=== PATIENT | female | born 1940 | race Caucasian/White ===

== ENCOUNTER → 2017-06-04 | Outpatient (CLI) | payer MEDICARE, MEDICAID | END | disposition home or self-care (01) | LOC: CFH 09:21 | PROVIDERS: ATTEND Surgery | DX: Z12.31 Encounter for screening mammogram for malignant neoplasm of breast (principal); Z85.3 Personal history of malignant neoplasm of breast; Z90.12 Acquired absence of left breast and nipple | CPT/HCPCS: G0202 ==

== ENCOUNTER → 2017-11-20 | Outpatient (CLI) | payer MEDICARE, MEDICAID | END | disposition home or self-care (01) | LOC: CFH 09:10 | PROVIDERS: ATTEND Family Medicine | DX: J42 Unspecified chronic bronchitis (principal) | CPT/HCPCS: 71046 ==

== ENCOUNTER 2021-02-10 20:48 | Inpatient (IN) | payer MEDICARE, MEDICAID ==
[~2021-02-10] VITALS: Ht 149.9 cm; Wt 74.1 kg
--- NOTE | 2021-02-10 21:15 | NUR ---
pt bib ems from home. pt states she has been feeling sick for about 3 months. states today she was getting out of bed and was feeling dizzy and fell down. denies loc or hitting head. pt's ra saturation is 81-84 percent. pt recieved 250 ml bolus and 4mg zofran enroute. pt placed on all monitors, ekg done, denies any chest pain. only pain she has is from chronic osteo arthritis. pt states she takes oxycodone daily.
[2021-02-10 22:00] LABS: MEAN CORPUSCULAR HEMOGLOBIN 29.5 pg (27.0-34.8); MEAN CORPUSCULAR HGB CONC 33.5 g/dL (32.4-35.8); MEAN PLATELET VOLUME 7.1 fL (7.4-10.4); PLATELET COUNT 477 x10^3/uL (130-400); RED BLOOD COUNT 4.85 x10^6/uL (3.82-5.3); RED CELL DISTRIBUTION WIDTH 14.3 % (9.6-15.2)
[2021-02-10 22:12] LABS: ALANINE AMINOTRANSFERASE 24 U/L (12-78); ALBUMIN 2.3 g/dL (3.4-5.0); ANION GAP 6 mmol/L (5-15); CALCIUM 8.6 mg/dL (8.5-10.1); CHLORIDE 99 mmol/L (98-107); CREATININE 0.71 mg/dL (0.55-1.02)
[2021-02-10 22:22] LABS: ALKALINE PHOSPHATASE 153 U/L (45-117); BILIRUBIN,TOTAL 0.4 mg/dL (0.2-1.0); TOTAL PROTEIN 7.7 g/dL (6.4-8.2); TROPONIN I 0.079 ng/mL (0.000-0.045)
[2021-02-10] MEDS ORDERED: OMNIPAQUE 350 MG/ML, 100ML BOTTLE ONE (22:50)
[2021-02-10] MEDS ORDERED: AZITHROMYCIN 500 MG in SODIUM CHLORIDE 0.9% 250 ML IV ONE (23:00)
[2021-02-10] MEDS ORDERED: HEPARIN 5,000 UNITS/ML, 1ML IV ONE (23:00)
[2021-02-10] MEDS ORDERED: CEFTRIAXONE 1,000 MG in DEXTROSE 5% 50 ML IVPB ONE (23:00)
[2021-02-10 23:01] LABS: <PLATELET ESTIMATE> INCREASED; <PLT MORPHOLOGY> NORMAL PLT MORPH; <RBC MORPHOLOGY> NORMAL; BAND#(MANUAL) 0.82 x10^3/uL; BANDS%(MANUAL) 5 % (0-7); LYMPH#(MANUAL) 1.15 x10^3/uL (1-3.4); LYMPHS% (MANUAL) 7 % (22-44); MONOS#(MANUAL) 0.66 x10^3/uL (0.3-2.7); MONOS% (MANUAL) 4 % (2-9); SEG#(MANUAL) 13.78 x10^3/uL (1.8-6.8); SEGS% (MANUAL) 84 % (42-75)
[2021-02-10] MEDS ORDERED: HEPARIN 5,000 UNITS/ML, 1ML ONE (23:19)
[2021-02-10] MEDS ORDERED: HEPARIN 25,000 UNITS/250ML PMX 250 ML ONE (23:19)
[2021-02-10] MEDS: HEPARIN 25,000 UNITS/250ML PMX 250 ML IV PRN (23:41)
--- NOTE | 2021-02-10 23:43 | NUR ---
abx hung after blood cultures
[2021-02-10 23:54] LABS: MICROSCOPIC NOT IND
[2021-02-11] MEDS ORDERED: ACETAMINOPHEN 325 MG TABLET PO PRN
[2021-02-11] MEDS ORDERED: LACTATED RINGERS 1,000 ML IVBOLUS ONE (00:30)
[2021-02-11 00:58] VITALS: BP 140/76
[2021-02-11 02:17] LABS: TROPONIN I 0.052 ng/mL (0.000-0.045)
[2021-02-11 05:27] LABS: BASOPHILS % (AUTO) 1 % (0-1); EOSINOPHILS % (AUTO) 1 % (1-7); LYMPHOCYTES % (AUTO) 12 % (22-44); MEAN CORPUSCULAR HEMOGLOBIN 29.4 pg (27.0-34.8); MEAN CORPUSCULAR HGB CONC 33.7 g/dL (32.4-35.8); MEAN PLATELET VOLUME 7.1 fL (7.4-10.4); MONOCYTES % (AUTO) 9 % (2-9); NEUTROPHILS % (AUTO) 77 % (42-75); PLATELET COUNT 413 x10^3/uL (130-400); RED BLOOD COUNT 4.47 x10^6/uL (3.82-5.3); RED CELL DISTRIBUTION WIDTH 14.2 % (9.6-15.2)
[2021-02-11 05:39] LABS: INTERNATIONAL NORMALIZED RATIO 1.09 (0.93-1.1); PROTHROMBIN TIME 11.6 Seconds (9.6-11.5)
[2021-02-11 05:41] LABS: ANION GAP 7 mmol/L (5-15); CALCIUM 8.6 mg/dL (8.5-10.1); CHLORIDE 103 mmol/L (98-107); CREATININE 0.59 mg/dL (0.55-1.02)
[2021-02-11 05:45] LABS: TROPONIN I 0.045 ng/mL (0.000-0.045)
[2021-02-11 06:20] VITALS: BP 116/77
[2021-02-11] MEDS: HEPARIN 5,000 UNITS/ML, 1ML IV PRN ×2 (07:05→20:40)
[2021-02-11] MEDS ORDERED: CEFTRIAXONE 2 GM in DEXTROSE 5% 50 ML IVPB SCH (09:00)
[2021-02-11] MEDS: AZITHROMYCIN 500 MG TABLET PO SCH (10:52)
[2021-02-11 14:00] VITALS: BP 124/68
[2021-02-11 18:44] VITALS: BP 130/79
[2021-02-11] MEDS ORDERED: CEFTRIAXONE 1,000 MG in DEXTROSE 5% 50 ML IVPB SCH (23:00)
[2021-02-11] MEDS: LORazepam 2 MG/ML, 1ML IVPush PRN (23:16)
[2021-02-11] MEDS: CEFTRIAXONE 1,000 MG in DEXTROSE 5% 50 ML IVPB SCH (23:16)
[2021-02-12 00:22] VITALS: BP 134/78
[2021-02-12] MEDS: HEPARIN 25,000 UNITS/250ML PMX 250 ML IV PRN (02:37)
[2021-02-12 03:51] LABS: BASOPHILS % (AUTO) 1 % (0-1); EOSINOPHILS % (AUTO) 2 % (1-7); LYMPHOCYTES % (AUTO) 22 % (22-44); MEAN CORPUSCULAR HEMOGLOBIN 29.6 pg (27.0-34.8); MEAN CORPUSCULAR HGB CONC 33.8 g/dL (32.4-35.8); MEAN PLATELET VOLUME 7.1 fL (7.4-10.4); MONOCYTES % (AUTO) 8 % (2-9); NEUTROPHILS % (AUTO) 67 % (42-75); PLATELET COUNT 446 x10^3/uL (130-400); RED BLOOD COUNT 4.13 x10^6/uL (3.82-5.3); RED CELL DISTRIBUTION WIDTH 13.9 % (9.6-15.2)
[2021-02-12 04:03] LABS: ALANINE AMINOTRANSFERASE 17 U/L (12-78); ALBUMIN 1.9 g/dL (3.4-5.0); ANION GAP 4 mmol/L (5-15); CALCIUM 8.4 mg/dL (8.5-10.1); CHLORIDE 107 mmol/L (98-107); CREATININE 0.56 mg/dL (0.55-1.02)
[2021-02-12 04:06] LABS: INTERNATIONAL NORMALIZED RATIO 1.07 (0.93-1.1); PROTHROMBIN TIME 11.4 Seconds (9.6-11.5)
[2021-02-12 04:30] LABS: ALKALINE PHOSPHATASE 116 U/L (45-117); BILIRUBIN,TOTAL 0.3 mg/dL (0.2-1.0); TOTAL PROTEIN 6.2 g/dL (6.4-8.2)
[2021-02-12 06:39] VITALS: BP 126/75
[2021-02-12] MEDS ORDERED: POTASSIUM CHLORIDE 20 MEQ TAB.ER.PRT PO ONE (08:30)
[2021-02-12] MEDS: AZITHROMYCIN 500 MG TABLET PO SCH (08:59)
[2021-02-12 14:38] VITALS: BP 125/84
[2021-02-12] MEDS ORDERED: APIXABAN 5 MG TABLET PO SCH ×2 (18:00→21:00)
[2021-02-12] MEDS: APIXABAN 5 MG TABLET PO SCH (18:02)
[2021-02-12 19:47] VITALS: BP 150/82
[2021-02-12] MEDS: CEFTRIAXONE 1,000 MG in DEXTROSE 5% 50 ML IVPB SCH (22:45)
[2021-02-12] MEDS: LORazepam 2 MG/ML, 1ML IVPush PRN (22:45)
[2021-02-13 00:40] VITALS: BP 145/83
[2021-02-13 05:18] LABS: BASOPHILS % (AUTO) 0 % (0-1); EOSINOPHILS % (AUTO) 3 % (1-7); INTERNATIONAL NORMALIZED RATIO 1.07 (0.93-1.1); LYMPHOCYTES % (AUTO) 16 % (22-44); MEAN CORPUSCULAR HEMOGLOBIN 29.4 pg (27.0-34.8); MEAN CORPUSCULAR HGB CONC 33.7 g/dL (32.4-35.8); MONOCYTES % (AUTO) 10 % (2-9); NEUTROPHILS % (AUTO) 71 % (42-75); PLATELET COUNT 550 x10^3/uL (130-400); PROTHROMBIN TIME 11.4 Seconds (9.6-11.5); RED BLOOD COUNT 4.46 x10^6/uL (3.82-5.3)
[2021-02-13 05:21] LABS: CHLORIDE 107 mmol/L (98-107)
[2021-02-13 05:25] LABS: ANION GAP 5 mmol/L (5-15); CALCIUM 8.6 mg/dL (8.5-10.1); CREATININE 0.64 mg/dL (0.55-1.02)
[2021-02-13 07:57] VITALS: BP 145/83
[2021-02-13] MEDS: AZITHROMYCIN 500 MG TABLET PO SCH (09:05)
[2021-02-13] MEDS: APIXABAN 5 MG TABLET PO SCH ×2 (09:05→22:29)
[2021-02-13] MEDS ORDERED: OXYcodone IR 5MG TABLET PO PRN (10:30)
[2021-02-13 12:04] VITALS: BP 127/86
[2021-02-13] MEDS: OXYcodone IR 5MG TABLET PO PRN ×2 (16:33→22:31)
[2021-02-13 18:36] VITALS: BP 122/81
[2021-02-13] MEDS ORDERED: MIRTAZAPINE 15 MG TABLET PO SCH (21:00)
[2021-02-13] MEDS: CEFTRIAXONE 1,000 MG in DEXTROSE 5% 50 ML IVPB SCH (22:29)
[2021-02-14 02:44] VITALS: BP 117/75
[2021-02-14] MEDS: OXYcodone IR 5MG TABLET PO PRN ×3 (06:20→18:43)
[2021-02-14 06:22] VITALS: BP 132/80
[2021-02-14] MEDS: APIXABAN 5 MG TABLET PO SCH ×2 (07:46→21:28)
[2021-02-14 11:40] LABS: INTERNATIONAL NORMALIZED RATIO 1.13 (0.93-1.1)
[2021-02-14 12:40] VITALS: BP 115/76
[2021-02-14 18:43] VITALS: BP 131/78
[2021-02-14] MEDS ORDERED: MIRTAZAPINE 15 MG TABLET PO SCH (21:00)
[2021-02-15 00:18] VITALS: BP 123/73
[2021-02-15] MEDS: OXYcodone IR 5MG TABLET PO PRN ×3 (00:46→12:39)
[2021-02-15 06:18] LABS: INTERNATIONAL NORMALIZED RATIO 1.09 (0.93-1.1); PROTHROMBIN TIME 11.6 Seconds (9.6-11.5)
[2021-02-15 06:43] VITALS: BP 122/78
[2021-02-15] MEDS ORDERED: OXYC5TAB98 PO (09:36)
[2021-02-15] MEDS ORDERED: ACET325T26 PO (09:36)
[2021-02-15] MEDS ORDERED: APIX5TAB PO (09:36)
[2021-02-15] MEDS: APIXABAN 5 MG TABLET PO SCH (11:27)
== END 2021-02-15 15:59 | DRG 175 ==
LOC: ED 23:55 → EDIP 02-11 00:06 → 5SO 02-11 00:34 → 4NW 02-12 15:28
PROVIDERS: ADMIT Internal Medicine; ATTEND Hospitalist
DX: I26.92 Saddle embolus of pulmonary artery without acute cor pulmonale (principal); I21.A1 Myocardial infarction type 2; R53.2 Functional quadriplegia; J18.9 Pneumonia, unspecified organism; F33.2 Major depressive disorder, recurrent severe without psychotic features; I50.30 Unspecified diastolic (congestive) heart failure; I82.443 Acute embolism and thrombosis of tibial vein, bilateral; T76.91XA Unspecified adult maltreatment, suspected, initial encounter; J91.8 Pleural effusion in other conditions classified elsewhere; Z66 Do not resuscitate; E66.01 Morbid (severe) obesity due to excess calories; Z68.33 Body mass index [BMI] 33.0-33.9, adult; F34.1 Dysthymic disorder; I07.1 Rheumatic tricuspid insufficiency; I27.21 Secondary pulmonary arterial hypertension; K59.00 Constipation, unspecified; Z79.01 Long term (current) use of anticoagulants; Z85.3 Personal history of malignant neoplasm of breast; Z87.891 Personal history of nicotine dependence; Z74.01 Bed confinement status
CPT/HCPCS: 36415; 71045; 71275; 74018; 80048; 80053; 81003; 82607; 83605; 83735; 83880; 84100; 84145; 84443; 84484; 85025; 85520; 85610; 87040; 93005; 93306; 93970; 96374; 96375; G0378; J0456; J0696; J1644; Q9967; J2060; J7050; J7120